=== PATIENT | male | born 1940 | race Caucasian/White ===

== ENCOUNTER → 2018-07-03 | Outpatient (CLI) | payer OTHER | LOC: FIMAGING 09:26 | PROVIDERS: ATTEND Urology | DX: N20.0 Calculus of kidney (principal); N21.0 Calculus in bladder ==

== ENCOUNTER 2018-07-05 14:11 | Day surgery (SDC) | payer OTHER ==
[2018-07-05] MEDS ORDERED: LR 1,000 ML IV ONE (14:19)
[2018-07-05] MEDS ORDERED: OPIUM/BELLADONNA ALKALO SUPP PR PRN (14:19)
[2018-07-05] MEDS ORDERED: ceFAZolin 2 GM/DEXTROSE 100 ML IV ONE (14:19)
[2018-07-05] MEDS ORDERED: MIDAZOLAM 2 MG/2 ML VIAL IVP ONE ×2 (15:33→17:02)
--- NOTE | 2018-07-05 15:33 | PDANEPAE ---
<Nick Dickey - Last Filed: 07/05/18 17:02> ANE Review of Systems Review of Systems: ANE Patient History - Allergies Allergies/Adverse Reactions: No Known Allergies Allergy (Verified 07/04/18 19:28) - Home Medications Home Medications: Cholecalciferol (Vitamin D3) 07/04/18 [Last Taken 07/04/18] Cider Vinegar 07/04/18 [Last Taken 07/04/18] Garlic 07/04/18 [Last Taken 07/04/18] Green Tea [place] Extract 07/04/18 [Last Taken 07/04/18] Lisinopril 07/04/18 [Last Taken 07/04/18] Magnesium 07/04/18 [Last Taken 07/04/18] Saw [place] 07/04/18 [Last Taken 07/04/18] Vitamin B Complex 07/04/18 [Last Taken 07/04/18] <Jovany Veliz - Last Filed: 07/06/18 06:50> ANE History of Present Illness L ureteroscopy ANE Past Medical History - Cardiovascular History Hx Hypertension: Yes Hx Arrhythmias: No Hx Chest Pain: No Hx Coronary Artery / Peripheral Vascular Disease: No Hx CHF / Valvular Disease: No Hx Palpitations: No - Pulmonary History Hx COPD: No Hx Asthma/Reactive Airway Disease: No Hx Recent Upper Respiratory Infection: No Hx Oxygen in Use at Home: No Hx Sleep Apnea: Yes Sleep Apnea Screening Result - Last Documented: Positive Pulmonary History Comment: ASTHMA A CHILD - Neurologic History Hx Cerebrovascular Accident: No Hx Seizures: No Hx Dementia: No - Endocrine History Hx Diabetes: No - Renal History Hx Renal Disorders: No - Liver History Hx Hepatic Disorders: No - Neurological & Psychiatric Hx Hx Neurological and Psychiatric Disorders: No - Cancer History Hx Cancer: No - Congenital Disorder History Hx Congenital Disorders: No - GI History Hx Gastrointestinal Disorders: No - Other Health History Other Health History: HEALING CATARACT - Chronic Pain History Chronic Pain: Yes (KNEES) - Surgical History Prior Surgeries: CATARACT SX. TKA 2017. BACK SX 6 YRS AGO ANE Review of Systems Review of systems is: negative Review of Systems: - Exercise capacity METS (RN): 4 METS ANE Patient History - Home Medications Home medications: home medication list seen and reviewed - NPO status NPO Since - Liquids (Date): 07/05/18 NPO Since - Liquids (Time): 12:30 NPO Since - Solids (Date): 07/04/18 NPO Since - Solids (Time): 18:00 - Smoking Hx Smoking Status: Never smoked - Family Anes Hx Family Hx Anesthesia Complications: NONE ANE Labs/Vital Signs - Vital Signs Vital Signs: reviewed preoperatively; see RN documention for details Blood Pressure: 113/68 Heart Rate: 84 Respiratory Rate: 16 O2 Sat (%): 96 Height: 182.88 cm Weight: 95.254 kg ANE Physical Exam - ASA Status ASA Status: II ANE Anesthesia Plan Anesthesia Plan: GA w LMA (I did not provide care to this pt.)
[2018-07-05] MEDS ORDERED: fentaNYL 100 MCG/2 ML INJ ONE ×2 (17:04→18:10)
[2018-07-05] MEDS ORDERED: PROPOFOL 200 MG/20 ML VIAL ONE ×2 (17:04→18:50)
[2018-07-05] MEDS ORDERED: LIDOCAINE 2% 2 ML INJ ONE ×2 (17:06)
--- NOTE | 2018-07-05 17:12 | PDHPUP ---
History & Physical Update H&P update statement: This history and physical update is based on an assessment of the patient which was completed after admission or registration (within 24 hours), but prior to the surgery/procedure. H&P update: H&P reviewed & patient examined, no change in patient's condition since H&P completed
[2018-07-05] MEDS ORDERED: ONDANSETRON 4 MG/2 ML VIAL ONE (17:24)
[2018-07-05] MEDS ORDERED: DEXAMETHASONE 4 MG/ML VIAL ONE (17:24)
[2018-07-05] MEDS ORDERED: levOFLOXACIN 500 MG/DEXTROSE 100 ML IV ONE ×2 (17:30→17:47)
[2018-07-05] MEDS ORDERED: levOFLOXACIN 500 MG/DEXTROSE/100 ML BAG IV ONE (17:31)
[2018-07-05] MEDS ORDERED: LIDOCAINE 2% JELLY 20 ML (UROJECT) ONE (18:13)
[2018-07-05] MEDS ORDERED: OPIUM/BELLADONNA ALKALO SUPP PR ONE (18:13)
[2018-07-05] MEDS ORDERED: IOPAMIDOL (ISOVUE-M 300) 15 ML VIAL ONE (18:14)
--- NOTE | 2018-07-05 18:29 | POSTANESTH ---
Post Anesthetic Evaluation Cardiovascular Status: Normal, Stable Respiratory Status: Normal, Stable Level of Consciousness/Mental Status: Can Participate in Eval, Mildly Sleepy, Arousable Pain Control: Adequate, Prn Tx Ordered Nausea/Vomiting Control: Adequate, Prn Tx Ordered Complications Possibly Related to Anesthesia: None Noted
[2018-07-05] MEDS ORDERED: DIAZEPAM 10 MG/2 ML SYR IVP PRN ×2 (18:30→20:40)
[2018-07-05] MEDS ORDERED: fentaNYL 100 MCG/2 ML INJ IVP PRN ×2 (18:30→20:40)
[2018-07-05] MEDS ORDERED: HYDROCODONE/APAP 5/325 TAB PO PRN ×2 (18:30→20:40)
[2018-07-05] MEDS ORDERED: METOCLOPRAMIDE 10 MG/2 ML VIAL IVP PRN ×2 (18:30→20:40)
[2018-07-05] MEDS ORDERED: PHENYLEPHRINE HCL 100 MCG/ML SYR IVP PRN ×2 (18:30→20:40)
[2018-07-05] MEDS ORDERED: LR 500 ML IV PRN ×2 (18:30→20:40)
[2018-07-05] MEDS ORDERED: HYDROmorphONE/DILAUDID 1 MG/ML INJ IVP PRN ×2 (18:30→20:40)
[2018-07-05] MEDS ORDERED: PROMETHAZINE HCL 25 MG/ML INJ IVP PRN ×2 (18:30→20:40)
[2018-07-05] MEDS ORDERED: LABETALOL HCL 5 MG/ML 20 ML MDV IVP PRN ×2 (18:30→20:40)
[2018-07-05] MEDS ORDERED: oxyCODONE IR 5 MG TAB PO PRN ×2 (18:30→20:40)
[2018-07-05] MEDS ORDERED: ALBUTEROL 3 ML DEYVIAL IH PRN ×2 (18:30→20:40)
[2018-07-05] MEDS ORDERED: ACETAMINOPHEN 500 MG TAB PO PRN ×2 (18:30→20:40)
[2018-07-05] MEDS ORDERED: ONDANSETRON 4 MG/2 ML VIAL IVP PRN ×2 (18:30→20:40)
[2018-07-05] MEDS ORDERED: NALOXONE HCL 0.4 MG/ML INJ IVP PRN ×2 (18:30→20:40)
[2018-07-05] MEDS ORDERED: HYDROmorphONE/DILAUDID 2 MG/ML INJ ONE (19:12)
--- NOTE | 2018-07-05 20:39 | POSTOPPROG ---
Post Op Note Date of Operation: 07/05/18 Surgeon: Lucinda Trejo Anesthesia: GET(General Endotracheal) Pre-op Diagnosis: left ureteral and renal stone Post-op Diagnosis: same, ureteral orifice stricture Indication: left ureteral and renal stone Procedure: cysto,LURS,laser,stent,balloon dilation ureter, basket ext stone, RGP Findings: left UO narrow, large ureteral and renal stone burden Inf/Abcess present in the surg proc area at time of surgery?: No EBL: Minimal Complications: none, patient tolerated procedure well Drains: Other (gill) Specimen(s): stone
[2018-07-06 06:50] VITALS: BP 113/68
--- NOTE | 2018-07-06 10:57 | GOP ---
[f rep st] OPERATIVE REPORT DATE OF OPERATION: 07/05/2018 SURGEON: Lucinda Trejo MD ANESTHESIA: General. ANESTHESIOLOGIST: Dr. Dickey. PREOPERATIVE DIAGNOSIS: Left ureteral and renal stones. 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 PROCEDURE PERFORMED: 1. Cystoscopy, left balloon dilation of ureteral orifice. 2. Left ureteroscopy, laser lithotripsy, stent, basket extraction of stone, retrograde pyelogram, intraoperative fluoroscopy. FINDINGS: A very narrow left ureteral orifice. I had much difficulty getting a wire through the distal UVJ anatomy, however, angled wire did result in left collecting system wire placement and then I balloon dilated over this wire. Other findings are extremely large burden of left ureteral stone and very large left renal stone burden. SPECIMENS: Stone. ESTIMATED BLOOD LOSS: Minimal. INDICATIONS: The patient presented to the ER last weekend with left flank pain that had never happened before. CT scan was done. He was found to have several large stones in his left ureteral orifice along with large renal stones and bladder stones as well as a large prostate. His creatinine was 2.2. The prior baseline was unknown. He presented to my office on Monday for discussion of the treatment options and I recommended a left stone clearance procedure 1st , given he is obstructed on that side. I discussed the rationale, risks and benefits including the risks of bleeding, infection, pain, injury to the urethra , the bladder, the left ureter, need for subsequent procedures, inability to gain access to the stone, need for just a stent, inability to clear all the stone in 1 setting requiring a staged procedure and possible inability to place a stent, and need for left percutaneous nephrostomy tube. He understood these risks and agreed to proceed. DESCRIPTION OF PROCEDURE: The patient was taken back to the cystoscopy suite, placed on the cystoscopy table in supine position. General anesthesia was induced without complication. Time-out performed. Core measures satisfied, including placement of a Anne Hugger, SCDs, and verification that he had received Ancef and Levaquin antibiotics per cultures as well as per history of bilateral knee replacement per AUA guidelines. The genitalia was then draped and prepped in the standard surgical fashion. Rigid cystoscope cannulated the urethral meatus and was advanced atraumatically into the bladder. There was a very large obstructing prostate. There were large Sacha shaped stones in the bladder, which we knew about from the CT scan and the left ureteral orifice was difficult to see due to the median lobe. I attempted cannulating it with 0.035 straight wires. It would not cannulate, almost as if there was an obstruction there. However there was no obstruction, just a J hooked left UVJ that was very narrow. I used different wires, 0.035 Glidewire, a Bard Solo Flex and then decided to try an angled wire and had success with a 0.035 angled wire to get into the left ureteral orifice. I then decided to balloon dilate with fluoroscopic guidance, the distal ureteral orifice due to the difficulty I had cannulating, so I advanced the balloon dilator to the level of the left ureteral orifice, advanced it in with fluoroscopic guidance and then dilated up to a pressure of 14 mmHg over the angled wire. I then removed the balloon dilator and was able to advance a 2nd Glidewire and then able to advance a semi- rigid ureteroscope into the ureter and then into the level of the 1st stone. The stones in the ureter measured 9 mm, 6 mm and 8 mm, and I was able to laser these stones into dust with laser fiber. Once I was satisfied with this and that I had no larger fragments and all was just dust and I did basket extract larger fragments out, I then advanced the sheath over the working wire with fluoroscopic guidance into the left proximal collecting system, advanced a flexible ureteroscope into the kidney and found a very large 1.2 cm stone at the UPJ. I started to laser this. It did laser well but eventually it was very difficult to see due to all the dust. I encountered several other stones and continued to laser as much as possible. I eventually lasered to the point where I could not visualize any more due to the floating sediment and I had been working for over 2 hours on this case and at this point, I felt I would need to come back for a 2nd look anyhow, due to poor visualization and so at this point, I basketed a few fragments out, had difficulty finding my way around due to the compromised visualization and at this point, I decided to place a stent. I still had a safety wire up and with fluoroscopic and cystoscopic guidance, I placed a 6-[place] multi-variable stent without difficulty with a curl in the renal pelvis and a nice curl in the bladder. There were quite a few small fragments that I drained out of the bladder. He still had the jackstones. He had not voided all day and so, due to his large prostate, I felt it would be best to leave him with a Lazcano catheter and also to facilitate removal of any fragments and dust. So I placed an 18-[place] Lazcano catheter, used lidocaine jelly for this, and then inflated the balloon with 10 cc of sterile water and placed a belladonna opium suppository. At this point, I considered the procedure complete. He was awoken from anesthesia and transferred to PACU in good condition. He did well during the procedure. We will see him for a second-look procedure for his left collecting system and then also discuss timing of a TURP as well as cystolitholapaxy. COMPLICATIONS: None. /[id number]/MODL MTDD
== END 2018-07-05 23:42 | disposition home or self-care (01) ==
LOC: FSGY 14:11
PROVIDERS: ATTEND Urology
DX: N20.2 Calculus of kidney with calculus of ureter (principal); N40.0 Benign prostatic hyperplasia without lower urinary tract symptoms
CPT/HCPCS: 52356; 76000; C1726; C1758; C1769; C1894; 82365-90; C2625; J0690; J1100; J1170; J1956; J2405; J2704; J3010; Q9967

== ENCOUNTER 2018-07-19 11:25 | Day surgery (SDC) | payer OTHER ==
[2018-07-19] MEDS ORDERED: ceFAZolin 2 GM/DEXTROSE 100 ML IV ONE (12:01)
[2018-07-19] MEDS ORDERED: OPIUM/BELLADONNA ALKALO SUPP PR PRN (12:01)
[2018-07-19] MEDS ORDERED: LR 1,000 ML IV ONE (12:02)
--- NOTE | 2018-07-19 15:19 | PDANEPAE ---
ANE History of Present Illness ureteral stone here for ureteroscopy, stone removal ANE Past Medical History - Cardiovascular History Hx Hypertension: Yes Hx Arrhythmias: No Hx Chest Pain: No Hx Coronary Artery / Peripheral Vascular Disease: No Hx CHF / Valvular Disease: No Hx Palpitations: No - Pulmonary History Hx COPD: No Hx Asthma/Reactive Airway Disease: No Hx Recent Upper Respiratory Infection: No Hx Oxygen in Use at Home: No Hx Sleep Apnea: Yes Sleep Apnea Screening Result - Last Documented: Positive Pulmonary History Comment: PEDRO NO C-PAP IN USE. ASTHMA A CHILD - Neurologic History Hx Cerebrovascular Accident: No Hx Seizures: No Hx Dementia: No - Endocrine History Hx Diabetes: No - Renal History Hx Renal Disorders: Yes Renal History Comment: KIDNEY STONES - Liver History Hx Hepatic Disorders: No - Neurological & Psychiatric Hx Hx Neurological and Psychiatric Disorders: No - Cancer History Hx Cancer: No - Congenital Disorder History Hx Congenital Disorders: No - GI History Hx Gastrointestinal Disorders: No - Other Health History Other Health History: HEALING CATARACT - Chronic Pain History Chronic Pain: Yes (KNEES) - Surgical History Prior Surgeries: LT URETEROSCOPY/LITHOTRIPSY 07/05/18. CATARACT SX. TKA 2017. BACK SX 6 YRS AGO ANE Review of Systems Review of Systems: - Exercise capacity METS (RN): 4 METS ANE Patient History - Allergies Allergies/Adverse Reactions: No Known Allergies Allergy (Verified 07/04/18 19:28) - Home Medications Home Medications: Cholecalciferol (Vitamin D3) DAILY 07/04/18 [Last Taken 07/04/18] Cider Vinegar DAILY 07/04/18 [Last Taken 07/12/18] Garlic DAILY 07/04/18 [Last Taken 07/12/18] Green Tea [place] Extract DAILY 07/04/18 [Last Taken 07/12/18] Lisinopril DAILY 07/04/18 [Last Taken 07/19/18] Saw [place] DAILY 07/04/18 [Last Taken 07/12/18] Vitamin B Complex DAILY 07/04/18 [Last Taken 07/16/18] - NPO status NPO Since - Liquids (Date): 07/19/18 NPO Since - Liquids (Time): 08:30 NPO Since - Solids (Date): 07/18/18 NPO Since - Solids (Time): 19:00 - Anes Hx Anes Hx: no prior problems - Smoking Hx Smoking Status: Never smoked - Alcohol Use Alcohol Use: Occasionally - Family Anes Hx Family Hx Anesthesia Complications: NONE ANE Labs/Vital Signs - Vital Signs Vital Signs: reviewed preoperatively; see RN documention for details Height: 182.88 cm Weight: 92.986 kg ANE Physical Exam - Airway Neck exam: FROM Mallampati Score: Class 2 Mouth exam: normal dental/mouth exam - Pulmonary Pulmonary: no respiratory distress, clear to auscultation - Cardiovascular Cardiovascular: regular rate and rhythym, no murmur, rub, or gallop - ASA Status ASA Status: II ANE Anesthesia Plan Anesthesia Plan: GA w LMA
[2018-07-19] MEDS ORDERED: IOPAMIDOL (ISOVUE-M 300) 15 ML VIAL ONE (15:27)
[2018-07-19] MEDS ORDERED: fentaNYL 100 MCG/2 ML INJ ONE (15:27)
[2018-07-19] MEDS ORDERED: PROPOFOL 200 MG/20 ML VIAL ONE ×2 (15:27→17:39)
[2018-07-19] MEDS ORDERED: LIDOCAINE 2% 100 MG/5 ML SYR ONE (15:28)
[2018-07-19] MEDS ORDERED: levOFLOXACIN 500 MG/DEXTROSE 100 ML IV ONE (15:35)
[2018-07-19] MEDS ORDERED: OPIUM/BELLADONNA ALKALO SUPP PR ONE (16:08)
[2018-07-19] MEDS ORDERED: ONDANSETRON 4 MG/2 ML VIAL ONE (16:24)
[2018-07-19] MEDS ORDERED: DEXAMETHASONE 4 MG/ML VIAL ONE (16:24)
[2018-07-19] MEDS ORDERED: LIDOCAINE 2% JELLY 20 ML (UROJECT) UR ONE (16:30)
[2018-07-19] MEDS ORDERED: NALOXONE HCL 0.4 MG/ML INJ IVP PRN (17:48)
[2018-07-19] MEDS ORDERED: ONDANSETRON 4 MG/2 ML VIAL IVP PRN (17:48)
[2018-07-19] MEDS ORDERED: ACETAMINOPHEN 500 MG TAB PO PRN (17:48)
[2018-07-19] MEDS ORDERED: HYDROmorphONE/DILAUDID 1 MG/ML INJ IVP PRN (17:48)
[2018-07-19] MEDS ORDERED: HYDROCODONE/APAP 5/325 TAB PO PRN (17:48)
[2018-07-19] MEDS ORDERED: fentaNYL 100 MCG/2 ML INJ IVP PRN (17:48)
[2018-07-19] MEDS ORDERED: oxyCODONE IR 5 MG TAB PO PRN (17:48)
--- NOTE | 2018-07-19 17:51 | POSTANESTH ---
Post Anesthetic Evaluation Cardiovascular Status: Normal, Stable, Similar to Pre-Op Cond Respiratory Status: Normal, Stable, Similar to Pre-op Cond., Requires Airway Assist Level of Consciousness/Mental Status: Can Participate in Eval, Moderately Sleepy Pain Control: Adequate, Prn Tx Ordered Nausea/Vomiting Control: Adequate, Prn Tx Ordered Complications Possibly Related to Anesthesia: None Noted
--- NOTE | 2018-07-19 18:00 | POSTOPPROG ---
Post Op Note Date of Operation: 07/19/18 Surgeon: Lucinda Trejo Anesthesiologist: Leilani Pre-op Diagnosis: left renal stones Post-op Diagnosis: same Indication: left renal stones Procedure: cysto,LURS,laser lithotripsy,stent,basket ext stones, fluoro, RGP Findings: stones left kidney Inf/Abcess present in the surg proc area at time of surgery?: No EBL: Minimal Complications: none, pt tolerated procedure well Specimen(s): stone
[2018-07-19 19:43] VITALS: BP 130/86
--- NOTE | 2018-07-20 20:49 | GOP ---
[f rep st] OPERATIVE REPORT DATE OF OPERATION: 07/19/2018 SURGEON: Lucinda Trejo MD ANESTHESIOLOGIST: Bobby Duke M.D. PREOPERATIVE DIAGNOSIS: Left renal stones. POSTOPERATIVE DIAGNOSIS: Left renal stones. PROCEDURE PERFORMED: Cystoscopy, left ureteroscopy, laser lithotripsy, basket extraction of stone, s tent, intraoperative fluoroscopy and retrograde pyelogram. FINDINGS: Multiple stones in the left kidney. SPECIMENS: Stone. ESTIMATED BLOOD LOSS: Minimal. INDICATIONS: The patient presents to me for a second-look ureteroscopy on the left. He had massive stone burden on the left that we took care of a week ago. He had multiple ureteral stones and a larg e 1.3 cm pelvis stone. I removed the ureteral stones and the pelvis stone and lasered some of the le ft renal stones, nonobstructing. There was a significant amount of dust which obscured visualization and so after spending over 2 hours doing his first procedure, I elected to bring him back for a 2nd look and keep trying to laser the lower pole stones. The rationale, risks, and benefits were discuss ed in detail including the risk of bleeding, infection, pain, injury to the urethra, the bladder, the left ureter, inability to place a stent, inability to access the stones, need for percutaneous nephr ostomy tube and a need for additional procedures. He understood this and agreed to proceed. DESCRIPTION OF PROCEDURE: The patient was taken back to the cystoscopy suite, placed on the cystosco py table in supine position. General anesthesia induced without complication. Time-out performed. Core measures satisfied, including placement of a Anne Hugger, SCD's and administration of Ancef anti biotics. He was brought to the end of the table, placed in dorsal lithotomy position. All pressure points padded. Genitalia draped and prepped in a standard surgical fashion with Betadine. Rigid cys toscope easily cannulated the urethral meatus and was advanced atraumatically into the bladder. The left distal end of the stent was grasped with a grasper. He does have a very large prostate with a l arge median lobe as well as large Jackstones in the bladder. His position in the left ureteral orifi ce is difficult due to all of this in the bladder, but I was able to see the stent, externalize the d istal end, place a wire through the stent in the left collecting system with fluoroscopic guidance, r emove the stent in its entirety and then place a second Glidewire with fluoroscopic and cystoscopic osbaldo hernandez into the left collecting system. I then advanced a 12/14-Wol[place] ureteral access sheath into the left collecting system over a working wire with fluoroscopic guidance. I advanced the cystoscope through the sheath and then encountered stones. I began lasering them into dust, they dusted very e asily. I found other stones and other calices especially in the lower pole and looked to dust these. At the end, nearly all of the stone was completely dusted and there was much dust floating around in the kidney. There were some fragments and I decided to just attempt to break these into small fragm ents that I could and then basket out what was basketable. I did basket out several fragments, what remained was just dust and small fragments that were too small to basket and I do feel I cleared him of any stones that would lead to obstruction of his ureter and all of the stone that was there would pass easily. I did a retrograde pyelogram. There were no other filling defects. I made sure I look ed in all the calices and that I had not left any larger stone fragments. At the end of the procedure , I was very pleased with the stone clearance. I then had a safety wire up, I removed the sheath and the scope together leaving a safety wire in place. Before I did that, I did a retrograde pyelogram a nd made sure I had gone into all the calices and then I removed the sheath and the scope together vani ving the safety wire in place. The ureter was dilated from the stent but no edema or significant tra enrike was seen. I then placed a 6-Wol[place] multivariable stent with fluoroscopic and cystoscopic guidanc e with a nice curl in the renal pelvis and a nice curl in the bladder. His bladder was then emptied. Lidocaine jelly placed per urethra. Belladonna, opium suppository placed per rectum. At this poin t, I considered the procedure complete. He was awoken from anesthesia and transferred to PACU in goo d condition. We will see him again in a few weeks for resection of his prostate and removal of bladd er stones. COMPLICATIONS: None. /[id number]/MODL
== END 2018-07-19 19:40 | disposition home or self-care (01) ==
LOC: FSGY 11:25
PROVIDERS: ATTEND Urology
DX: N20.0 Calculus of kidney (principal); N40.1 Benign prostatic hyperplasia with lower urinary tract symptoms; N21.0 Calculus in bladder
CPT/HCPCS: 52356; 76000; C1758; C1769; C1894; 82365-90; C2625; J1100; J1956; J2001; J2405; J2704; J3010; Q9967

== ENCOUNTER 2018-08-09 11:54 | Observation (INO) | payer OTHER | END 2018-08-10 15:30 | disposition home or self-care (01) | LOC: FSGY 11:54 → F3N 14:11 → F1N 17:58 ==